=== PATIENT | female | born 1935 | race Caucasian/White ===

== ENCOUNTER → 2016-03-18 | Outpatient (CLI) | payer MEDICARE ==
[2016-03-18 13:53] LABS: ABSOLUTE BASOPHILS # (AUTO) 0.1 10^3/uL (0.0-0.2); ABSOLUTE EOSINOPHILS # (AUTO) 0.3 10^3/uL (0.0-0.6); ABSOLUTE LYMPHOCYTES (AUTO) 1.6 10^3/uL (0.5-4.7); ABSOLUTE MONOCYTES (AUTO) 0.4 10^3/uL (0.1-1.4); ABSOLUTE NEUT (AUTO) 3.4 10^3/uL (1.7-8.2); BASOPHILS % (AUTO) 0.9 % (0-2); EOSINOPHILS % (AUTO) 5.9 % (0-6); HEMATOCRIT 42.2 % (36.0-47.0); HGB HCT DIFFERENCE -0.2; LYMPHOCYTES % (AUTO) 27.5 % (13-45); MEAN CORPUSCULAR HEMOGLOBIN 30.4 pg (27.0-33.4); MEAN CORPUSCULAR HGB CONC 33.2 g/dL (32.0-36.0); MEAN CORPUSCULAR VOLUME 91 fl (80-97); MONOCYTES % (AUTO) 7.2 % (3-13); RED BLOOD COUNT 4.62 10^6/uL (3.72-5.28); RED CELL DISTRIBUTION WIDTH 13.6 % (11.5-14.0); SEGMENTED NEUTROPHILS % (AUTO) 58.5 % (42-78); WHITE BLOOD COUNT 5.7 10^3/uL (4.0-10.5)
[2016-03-18 14:16] LABS: ALANINE AMINOTRANSFERASE 31 U/L (9-52); ALBUMIN 4.2 g/dL (3.5-5.0); ALKALINE PHOSPHATASE 77 U/L (38-126); ANION GAP 10 (5-19); ASPARTATE AMINO TRANSFERASE 25 U/L (14-36); BILIRUBIN,TOTAL 0.6 mg/dL (0.2-1.3); BLOOD UREA NITROGEN 24 mg/dL (7-20); CALCIUM 9.9 mg/dL (8.4-10.2); CARBON DIOXIDE 32 mmol/L (22-30); CHLORIDE 101 mmol/L (98-107); CREATININE RESULT 1.09 mg/dL (0.52-1.25); Direct HDL 59 mg/dL (>40); GLUCOSE 91 mg/dL (75-110); POTASSIUM 5.1 mmol/L (3.6-5.0); SODIUM 143.2 mmol/L (137-145); TOTAL PROTEIN 7.5 g/dL (6.3-8.2); TRIGLYCERIDES 138 mg/dL (<150)
[2016-03-18 14:26] LABS: DIRECT LDL 128 mg/dL (<100)
[2016-03-18 14:30] LABS: FREE T3 3.83 pg/mL (2.77-5.27)
[2016-03-18 14:44] LABS: THYROID STIMULATING HORMONE 3.25 uIU/mL (0.47-4.68)
== END ==
LOC: LAB 13:34
PROVIDERS: ATTEND Internal Medicine
DX: R53.83 Other fatigue (principal); E11.9 Type 2 diabetes mellitus without complications; E78.5 Hyperlipidemia, unspecified
CPT/HCPCS: 36415; 80053; 80061; 84439; 84443; 84481; 85025

== ENCOUNTER → 2018-11-23 | Outpatient (CLI) | payer MEDICARE ==
--- NOTE | 2018-11-23 15:40 | RADIOLOGY REPORT (SQ) ---
EXAM DESCRIPTION: CHEST PA/LATERAL COMPLETED DATE/TIME: 11/23/2018 3:16 pm REASON FOR STUDY: PRE-OP COMPARISON: 08/14/2014 EXAM PARAMETERS: NUMBER OF VIEWS: two views TECHNIQUE: Digital Frontal and Lateral radiographic views of the chest acquired. RADIATION DOSE: NA LIMITATIONS: none FINDINGS: LUNGS AND PLEURA: There is bibasilar atelectasis or scarring. No consolidation or effusio ns. No pneumothorax. MEDIASTINUM AND HILAR STRUCTURES: No masses or contour abnormalities. HEART AND VASCULAR STRUCTURES: Heart normal size. No evidence for failure. BONES: Unchanged. Bilateral shoulder prostheses are in place. HARDWARE: None in the chest. OTHER: No other significant finding. IMPRESSION: Basilar atelectasis or scarring stable from prior exam. No acute findings. TECHNICAL DOCUMENTATION: JOB ID: [id number] [employer]- All Rights Reserved Reading location - IP/workstation name: [email or web address]
[2018-11-23 17:50] LABS: ABSOLUTE BASOPHILS # (AUTO) 0.1 10^3/uL (0.0-0.2); ABSOLUTE EOSINOPHILS # (AUTO) 0.3 10^3/uL (0.0-0.6); ABSOLUTE LYMPHOCYTES (AUTO) 2.3 10^3/uL (0.5-4.7); ABSOLUTE MONOCYTES (AUTO) 0.5 10^3/uL (0.1-1.4); ABSOLUTE NEUT (AUTO) 4.3 10^3/uL (1.7-8.2); BASOPHILS % (AUTO) 0.8 % (0-2); EOSINOPHILS % (AUTO) 4.4 % (0-6); HEMATOCRIT 41.6 % (36.0-47.0); HEMOGLOBIN 13.7 g/dL (12.0-15.5); MEAN CORPUSCULAR HEMOGLOBIN 30.6 pg (27.0-33.4); MEAN CORPUSCULAR VOLUME 93 fl (80-97); MONOCYTES % (AUTO) 7.1 % (3-13); PLATELET COUNT 217 10^3/uL (150-450); RED BLOOD COUNT 4.48 10^6/uL (3.72-5.28); RED CELL DISTRIBUTION WIDTH 13.7 % (11.5-14.0); SEGMENTED NEUTROPHILS % (AUTO) 56.7 % (42-78); TOTAL CELLS COUNTED % (AUTO) 100 %; WHITE BLOOD COUNT 7.6 10^3/uL (4.0-10.5)
[2018-11-23 17:55] LABS: ANION GAP 12 (5-19); BLOOD UREA NITROGEN 27 mg/dL (7-20); CALCIUM 9.9 mg/dL (8.4-10.2); CARBON DIOXIDE 29 mmol/L (22-30); CHLORIDE 97 mmol/L (98-107); GLUCOSE 91 mg/dL (75-110); POTASSIUM 4.9 mmol/L (3.6-5.0)
[2018-11-23 18:01] LABS: APPEARANCE,URINE CLEAR; BILIRUBIN,URINE NEGATIVE (NEGATIVE); COLOR,URINE COLORLESS; GLUCOSE, URINE NEGATIVE (NEGATIVE); KETONES,URINE NEGATIVE (NEGATIVE); LEUKOCYTE ESTERASE,URINE NEGATIVE (NEGATIVE); NITRITE,URINE NEGATIVE (NEGATIVE); PROTEIN,URINE NEGATIVE (NEGATIVE); URINE SPECIFIC GRAVITY 1.004; UROBILINOGEN,URINE NEGATIVE mg/dL (<2.0)
--- NOTE | 2018-11-23 18:17 | EKG REPORT ---
SEVERITY:- ABNORMAL ECG - SINUS RHYTHM PROBABLE LEFT ATRIAL ABNORMALITY PROBABLE LEFT VENTRICULAR HYPERTROPHY : Confirmed by: Chava Pro MD 23-Nov-2018 18:16:15
== END ==
LOC: OD 14:36
PROVIDERS: ATTEND Orthopaedic Surgery
DX: Z01.810 Encounter for preprocedural cardiovascular examination (principal); Z01.811 Encounter for preprocedural respiratory examination; Z01.812 Encounter for preprocedural laboratory examination
CPT/HCPCS: 36415; 71046; 80048; 81001; 85025; 93005; 93010

== ENCOUNTER 2018-12-16 15:14 | Emergency (ER) | payer MEDICARE ==
--- NOTE | 2018-12-16 16:14 | RADIOLOGY REPORT (SQ) ---
EXAM DESCRIPTION: HUMERUS LEFT COMPLETED DATE/TIME: 12/16/2018 3:55 pm REASON FOR STUDY: deformity COMPARISON: 10/29/2012 NUMBER OF VIEWS: Two views. TECHNIQUE: Two radiographic images were acquired of the left humerus to include elbow and shoulder i n at least one projection. LIMITATIONS: None. FINDINGS: MINERALIZATION: Normal. 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 There is an oblique fracture through th e mid humerus at approximately the distal aspect of the prosthesis. Distal fragment is displaced lat erally. SOFT TISSUES: No obvious swelling or foreign body. OTHER: No other significant finding. IMPRESSION: Oblique fracture through the mid left humerus as described. TECHNICAL DOCUMENTATION: JOB ID: [id number] [employer]- All Rights Reserved Reading location - IP/workstation name: [email or web address]
[2018-12-16] MEDS ORDERED: KETAMINE HCL INJ 500 MG/10 ML VIAL IV ONE (16:48)
--- NOTE | 2018-12-16 17:21 | ER Document Report ---
ED General - General Chief Complaint: Arm Injury Stated Complaint: FALL Time Seen by Provider: 12/16/18 15:52 Primary Care Provider: ARNOLD PIZARRO MD [Primary Care Provider] - Follow up as needed TRAVEL OUTSIDE OF THE [place] IN LAST 30 DAYS: No - HPI Notes: Patient presents after slipping falling and resulting in deformity of left upper extremity. She complains of left upper arm pain. She also has a small bruise on her forehead but she denies any loss of consciousness and headache or vision changes. She is ambulatory after the incident denies any other upper or lower extremity pain including no left elbow pain or left wrist or left hand pain. She is not on any blood thinners. - Related Data Allergies/Adverse Reactions: amitriptyline [Amitriptyline] Allergy (Intermediate, Verified 12/13/18 11:39) Hallucinations morphine [Morphine] Allergy (Intermediate, Verified 12/13/18 11:39) Hallucinations ibuprofen [Ibuprofen] Allergy (Mild, Verified 12/13/18 11:39) N/V propoxyphene napsylate [From Darvocet-N 100] Allergy (Mild, Verified 12/13/18 11:39) N/V cephalexin monohydrate [From Keflex] Allergy (Unknown, Verified 12/13/18 11:39) UNSURE Sulfa (Sulfonamide Antibiotics) Allergy (Unknown, Verified 12/13/18 11:39) UNSURE zolpidem tartrate [From Ambien] Adverse Reaction (Intermediate, Verified 12/13/18 11:39) Passed out Past Medical History - Social History Smoking Status: Never Smoker Family History: Reviewed & Not Pertinent Patient has suicidal ideation: No Patient has homicidal ideation: No - Past Medical History Cardiac Medical History: Denies: Hx Coronary Artery Disease, Hx Heart Attack, Hx Hypertension Pulmonary Medical History: Reports: Hx Asthma Denies: Hx Bronchitis, Hx COPD, Hx Pneumonia Neurological Medical History: Denies: Hx Cerebrovascular Accident, Hx Seizures Endocrine Medical History: Denies: Hx Diabetes Mellitus Type 1, Hx Diabetes Mellitus Type 2, Hx Graves' Disease, Hx Hyperthyroidism, Hx Hypothyroidism GI Medical History: Reports: Hx Hiatal Hernia. Denies: Hx Hepatitis, Hx Ulcer Musculoskeletal Medical History: Reports Hx Arthritis - osteoporosis, Reports Hx Fibromyalgia Infectious Medical History: Denies: Hx Hepatitis Past Surgical History: Reports: Hx Hysterectomy, Hx Orthopedic Surgery - neck. Denies: Hx Mastectomy, Hx Open Heart Surgery, Hx Pacemaker - Immunizations Hx Diphtheria, Pertussis, Tetanus Vaccination: Yes - unknown Hx Pneumococcal Vaccination: 02/16/09 Review of Systems - Review of Systems Constitutional: No symptoms reported EENT: No symptoms reported Cardiovascular: No symptoms reported Respiratory: No symptoms reported Gastrointestinal: No symptoms reported Genitourinary: No symptoms reported Female Genitourinary: No symptoms reported Musculoskeletal: See HPI Skin: No symptoms reported Hematologic/Lymphatic: No symptoms reported Neurological/Psychological: No symptoms reported Physical Exam - Vital signs Vitals: Temp Pulse Resp BP Pulse Ox 98.0 F 84 16 157/88 H 96 12/16/18 15:14 12/16/18 15:14 12/16/18 15:14 12/16/18 15:14 12/16/18 15:14 - General General appearance: Appears well, Alert - Very pleasant well-appearing her stated age - HEENT Head: Normocephalic, Other - Small bruise approximately 1 by half inch on lateral aspect of right forehead - Respiratory Respiratory status: No respiratory distress Chest status: Nontender Breath sounds: Normal Chest palpation: Normal - Cardiovascular Rhythm: Regular Heart sounds: Normal auscultation Murmur: No - Abdominal Inspection: Normal Distension: No distension - Back Back: Normal, Nontender - Extremities General upper extremity: Other - Right upper extremity no acute findings, left upper extremity diffuse swelling mid humerus. No pain to palpation of elbow or shoulder. No pain to palpation of left hand or wrist joints. Less than 2+ capillary refill of left upper extremity and 2+ radial pulse General lower extremity: Other - Full range of motion of all joints without any pain - Neurological Neuro grossly intact: Yes Cognition: Normal Course - Re-evaluation Re-evalutation: 12/16/18 17:20 X-ray shows oblique fracture with full shoulder prosthesis. Distal aspect of shoulder prosthesis goes through midline aspect of oblique fracture. I consulted our orthopedist Dr. Wilson and sent him pictures of the fracture. He advised no reduction and to place patient in coaptation splint. We will conscious sedate patient at this time and proceed with splinting. Also waiting for CT head as she does have small bruise due to age will scan head. 12/16/18 17:45 Patient tolerated procedure well. Family has business card of orthopedic who performed initial surgery at [facility]. Dr. Carlson also suggested patient being consulted at [facility]. Family will call early next week. Splint return precautions provided. - Vital Signs Vital signs: Temp Pulse Resp BP Pulse Ox 98.0 F 84 16 157/88 H 96 12/16/18 15:14 12/16/18 15:14 12/16/18 15:14 12/16/18 15:14 12/16/18 15:14 Procedures - Conscious Sedation Conscious sedation Consent obtained: Yes Indication: Reduction Prior complications: Procedural sedation ASA Classification: Choose one classification Normal healthy pt.: P1. - ASA Classification Airway Evaluation: Normal anatomy Mallampati Classification: Class 1 Used during procedure: Suction available, IV access obtained, Pulse ox on pt., monitoring and evaluation advisor on pt. Medications administered: Ketamine Reversal agents: None I personally performed/intraservice time: Sedation, Procedure, 30 min or less Complications: No - Joint Reduction/Fracture Care Left Upper Arm Consent obtained: Yes Conscious sedation: Yes Pre-procedure NV exam: Yes Fracture: Closed Manipulation comment: None Post-procedure NV exam: Yes Complications: No Notes: 12/16/18 17:47 Coaptation splint placed during conscious sedation. Discharge - Discharge Clinical Impression: Displaced oblique fracture of shaft of left humerus Qualifiers: Encounter type: initial encounter Fracture type: closed Qualified Code(s): S42.332A - Displaced oblique fracture of shaft of humerus, left arm, initial encounter for closed fracture Condition: Good Disposition: HOME, SELF-CARE Instructions: Splint Precautions ([facility]), Temporary Splint ([facility]), Fracture Proximal Humerus Additional Instructions: Per discussion, please call your orthopedic [facility] early next week to discuss repair of your left humerus fracture. If your hand or fingers become tingly numb or discolored please seek medical evaluation of your splint. Prescriptions: Hydrocodone/Acetaminophen [[place] 5-325 mg Tablet] 1 tab PO ASDIR PRN #15 tablet PRN Reason:
--- NOTE | 2018-12-16 17:28 | RADIOLOGY REPORT (SQ) ---
EXAM DESCRIPTION: CT HEAD WITHOUT COMPLETED DATE/TIME: 12/16/2018 5:20 pm REASON FOR STUDY: fall, hit head COMPARISON: 03/04/2012 TECHNIQUE: Axial images acquired through the brain without intravenous contrast. Images reviewed wi th bone, brain and subdural windows. Additional sagittal and coronal reconstructions were generated. Images stored on PACS. All CT scanners at this facility use dose modulation, iterative reconstruction, and/or weight based d osing when appropriate to reduce radiation dose to as low as reasonably achievable (ALARA). [facility]: Dose Right [facility]: CareDose [facility]: Dose Right [facility]: Teradose 4D [facility]: Smart Appy Pie RADIATION DOSE: CT Rad equipment meets quality standard of care and radiation dose reduction techniq ues were employed. CTDIvol: 53.2 mGy. DLP: 964 mGy-cm. mGy. LIMITATIONS: None. FINDINGS: VENTRICLES: Normal size and contour. CEREBRUM: No masses. No hemorrhage. No midline shift. No evidence for acute infarction. Normal gra y/white matter differentiation. No areas of low density in the white matter. CEREBELLUM: No masses. No hemorrhage. No alteration of density. No evidence for acute infarction. EXTRAAXIAL SPACES: No fluid collections. No masses. ORBITS AND GLOBE: No intra- or extraconal masses. Normal contour of globe without masses. CALVARIUM: No fracture. PARANASAL SINUSES: No fluid or mucosal thickening. SOFT TISSUES: No mass or hematoma. OTHER: No other significant finding. IMPRESSION: NORMAL BRAIN CT WITHOUT CONTRAST. EVIDENCE OF ACUTE STROKE: NO. COMMENT: Quality ID # [id number]: Final reports with documentation of one or more dose reduction techniques (e.g., Automated exposure control, adjustment of the mA and/or kV according to patient size, use of iterative reconstruction technique) TECHNICAL DOCUMENTATION: JOB ID: [id number] [employer]- All Rights Reserved Reading location - IP/workstation name: [email or web address]
[2018-12-16] MEDS ORDERED: HYDROCODONE/ACETAMINOPHEN 5-325 MG (6 TAB/ER DISP) PO PRN (17:56)
[2018-12-16 18:37] VITALS: BP 187/106
== END 2018-12-16 18:49 | disposition home or self-care (01) ==
LOC: ER 15:14
PROC: 0PSGXZZ Reposition Left Humeral Shaft, External Approach (ICD-10-PCS; principal; 2018-12-16)
DX: S42.332A Displaced oblique fracture of shaft of humerus, left arm, initial encounter for closed fracture (principal); M79.602 Pain in left arm; W01.0XXA Fall on same level from slipping, tripping and stumbling without subsequent striking against object, initial encounter
CPT/HCPCS: 73060; 70450; 24505; J3490; A9270

== ENCOUNTER 2018-12-20 10:47 | Day surgery (SDC) | payer MEDICARE ==
[~2018-12-20 10:47] MED LIST: BUPIVACAINE INJ/PF LIPOSOME/PF 266 MG/20 ML SDV INJ PRN; CLINDAMYCIN 600 MG/D5W RTU 600 MG/50 ML RTUPB IV ONE; CLINDAMYCIN 600 MG/D5W RTU 600 MG/50 ML RTUPB IV PRN; IBUPROFEN 800 MG in NORMAL SALINE 250 ML IV PRN; LACTATED RINGERS 1000 ML IV PRN; LIDOCAINE 0.5% INJ-PF (5 MG/ML) 50 ML SDV SUBCUT PRN; OXYCODONE HCL SR 10 MG TABLET PO PRN; PANTOPRAZOLE SODIUM 20 MG TABLET.DR PO PRN; VANCOMYCIN HCL 1,000 MG in DEXTROSE 5%-WATER 250 ML IV PRN
[2018-12-20] MEDS ORDERED: SUCCINYLCHOLINE CHLORIDE INJ 200 MG/10 ML VIAL ONE (10:59)
[2018-12-20] MEDS ORDERED: MIDAZOLAM 2 MG/2 ML INJ ONE (11:58)
[2018-12-20] MEDS ORDERED: FENTANYL CITRATE INJ/PF 100 MCG/2 ML AMPUL ONE ×2 (11:58→15:46)
[2018-12-20] MEDS ORDERED: TRANEXAMIC ACID INJ/PF 1,000 MG/10 ML SDV ONE (11:58)
[2018-12-20] MEDS ORDERED: PROPOFOL INJ 200 MG/20 ML VIAL IV ONE (11:58)
[2018-12-20] MEDS ORDERED: DEXAMETHASONE SOD PHOSPHATE INJ 4 MG/1 ML VIAL ONE (11:58)
[2018-12-20] MEDS ORDERED: ONDANSETRON HCL INJ/PF 4 MG/2 ML SDV ONE (11:58)
[2018-12-20] MEDS ORDERED: MORPHINE SULFATE 10 MG/ML INJ IV PRN (14:25)
[2018-12-20] MEDS ORDERED: FENTANYL CITRATE INJ/PF 100 MCG/2 ML AMPUL IV PRN ×3 (14:25)
[2018-12-20] MEDS ORDERED: MEPERIDINE HCL/PF INJ 25 MG/1 ML DISP.SYRIN IV PRN (14:25)
[2018-12-20] MEDS ORDERED: DIPHENHYDRAMINE HCL 50 MG/ML VIAL IV PRN (14:25)
[2018-12-20] MEDS ORDERED: PROMETHAZINE HCL INJ 25 MG/1 ML VIAL IV PRN ×2 (14:25)
--- NOTE | 2018-12-20 14:56 | Operative Report ---
Operative Report DATE OF SURGERY: 12/20/18 PREOPERATIVE DIAGNOSIS: Left humeral periprosthetic fracture OPERATION: ORIF left humeral periprosthetic fracture SURGEON: LINA RIVAS ANESTHESIA: GA ESTIMATED BLOOD LOSS: 25 PROCEDURE: With the patient in a right lateral decubitus position on the operating table the left upper extremity forequarter prepped and draped in sterile fashion. A longitudinal incision was made over the lateral border of the distal two thirds of the humerus. Sharp dissection was carried incision down to the muscle fascia. The muscle fascia split with the triceps posteriorly. The radial nerve was identified coming through the triceps fascia and its identity is confirmed using a nerve stimulator. This was protected throughout the remaining of the surgical case. A Amadeo 4.5 mm titanium plate is applied to the lateral surface of the humerus and secured distally with bicortical screws. The fracture was then reduced and the proximal aspect of the plate is brought to the proximal humerus. It secured with unicortical screws and 2 cables. The fracture reduction and hardware placement are assessed fluoroscopically and felt to be adequate. The wound was irrigated. Is closed with interrupted Vicryl followed by carmine. A sterile compressive dressing and shoulder sling are applied and the patient's return to the PACU in satisfactory condition.
--- NOTE | 2018-12-20 14:58 | Discharge Summary ---
Discharge Summary (SDC) - Discharge Final Diagnosis: Left humeral periprosthetic fracture Date of Surgery: 12/20/18 Discharge Date: 12/20/18 Condition: Good Treatment or Instructions: Elevate left upper extremity on pillows Prescriptions: Hydrocodone/Acetaminophen [[place] 5-325 mg Tablet] 1 tab PO Q6 #25 tablet Referrals: ARNOLD PIZARRO MD [Primary Care Provider] - Discharge Diet: Regular Respiratory Treatments at Home: Deep Breathing/Coughing Discharge Activity: Balance Activity w/Rest, No tub bath Home Care Assistance: None Needed Report the Following to Your Physician Immediately: Shortness of Breath, Fever over 101 Degrees, Drainage-Foul Smelling
--- NOTE | 2018-12-20 15:35 | RADIOLOGY REPORT (SQ) ---
EXAM DESCRIPTION: NO CHG FLUORO; HUMERUS LEFT COMPLETED DATE/TIME: 12/20/2018 3:25 pm REASON FOR STUDY: LEFT HUMERUS ORIF S42.332A DISPLACED OBLIQUE FX SHAFT OF HUMERUS, LEFT ARM, IN COMPARISON: None. FLUOROSCOPY TIME: 0.1 minutes 7 images saved to PACS. TECHNIQUE: Intra-operative images acquired during surgical procedure to evaluate progress. NUMBER OF IMAGES: 7 LIMITATIONS: None. FINDINGS: Fluoroscopic images from plate and screw fixation of midshaft humeral fracture. IMPRESSION: IMAGE(S) OBTAINED DURING PROCEDURE. COMMENT: Quality ID [id number]: Final reports for procedures using fluoroscopy that document radiation exp osure indices, or exposure time and number of fluorographic images (if radiation exposure indices are not available) Please consult full operative report of the attending physician for description of the procedure. TECHNICAL DOCUMENTATION: JOB ID: [id number] [employer]- All Rights Reserved Reading location - IP/workstation name: [email or web address]
--- NOTE | 2018-12-20 15:35 | RADIOLOGY REPORT (SQ) ---
EXAM DESCRIPTION: NO CHG FLUORO; HUMERUS LEFT COMPLETED DATE/TIME: 12/20/2018 3:25 pm REASON FOR STUDY: LEFT HUMERUS ORIF S42.332A DISPLACED OBLIQUE FX SHAFT OF HUMERUS, LEFT ARM, IN COMPARISON: None. FLUOROSCOPY TIME: 0.1 minutes 7 images saved to PACS. TECHNIQUE: Intra-operative images acquired during surgical procedure to evaluate progress. NUMBER OF IMAGES: 7 LIMITATIONS: None. FINDINGS: Fluoroscopic images from plate and screw fixation of midshaft humeral fracture. IMPRESSION: IMAGE(S) OBTAINED DURING PROCEDURE. COMMENT: Quality ID [id number]: Final reports for procedures using fluoroscopy that document radiation exp osure indices, or exposure time and number of fluorographic images (if radiation exposure indices are not available) Please consult full operative report of the attending physician for description of the procedure. TECHNICAL DOCUMENTATION: JOB ID: [id number] [employer]- All Rights Reserved Reading location - IP/workstation name: [email or web address]
[2018-12-20] MEDS ORDERED: ACETAMINOPHEN 1,000 MG/100 ML RTUPB IV ONE (15:46)
[2018-12-20] MEDS ORDERED: HYDROCODONE/ACETAMINOPHEN 5-325 MG TABLET ONE (17:10)
[2018-12-20 20:31] VITALS: BP 135/81
== END 2018-12-20 18:35 | disposition home or self-care (01) ==
LOC: OROUT 10:47
PROVIDERS: ATTEND Orthopaedic Surgery
DX: M97.32XA Periprosthetic fracture around internal prosthetic left shoulder joint, initial encounter (principal); X58.XXXA Exposure to other specified factors, initial encounter; M79.7 Fibromyalgia; Z79.899 Other long term (current) drug therapy; I10 Essential (primary) hypertension
CPT/HCPCS: 36415; 84132; 73060; 01740; 23615; J2250; J1100; J3010; J0330; J2405; J2704; J0131; J3490; A9270